=== PATIENT | male | born 1985 | race Caucasian/White ===

== ENCOUNTER 2020-06-13 13:17 | Emergency (ER) | payer OTHER, SELFPAY ==
--- NOTE | ~2020-06-13 | XR_ITS ---
EXAMINATION: XR FINGER, LEFT CLINICAL INFORMATION: Laceration, injury COMPARISON: None TECHNIQUE: AP view left hand and 2 views left thumb are obtained for 3 views. FINDINGS: There is a known laceration distal left thumb. An oblique fracture possibly comminuted involving the distal phalangeal tuft. There is no destructive process. No dislocation. The remainder of the bony structures are intact. XR/XR finger LT min 2V IMPRESSION: Laceration distal left thumb with fracture distal phalangeal tuft.
[2020-06-13 13:36] VITALS: BP 148/92; PULSE 83; RESP 18; TEMP 36.8; O2SAT 97; BMI 27.1
[2020-06-13] MEDS: Ibuprofen 800 MG TABLET PO (16:10)
[2020-06-13] MEDS: Lidocaine HCl 1 % MPF 5 ML VIAL 10 ML SUBCUT (16:11)
[2020-06-13] MEDS: Diphth,Pertus(ACell),Tet Adult 0.5 ML SYRINGE IM (16:35)
[2020-06-13] MEDS: Lidocaine 4 % Cream KIT 1 APPL TOPICAL (17:08)
--- NOTE | 2020-06-13 17:43 | ED_ITS ---
HPI - Wound/Laceration General Chief Complaint: Wound/Laceration Stated Complaint: lac - work related Time Seen by Provider: 06/13/20 15:45 Source: patient Mode of arrival: ambulatory Limitations: no limitations History of Present Illness HPI narrative: States fortunately script his finger across a sharp metal full at work causing partial avulsion of the nail and laceration to the nail bed. For his tetanus vaccination. Injury to the left thumb. This occurred today at work on 06/13/2020 Onset (ago): minute(s) Extremity Location: left: hand (Thumb) Place: work Patient tetanus UTD: No Context: accidental Associated symptoms: pain Treatments prior to arrival: bandage Related Data Previous Rx's Medication Instructions Recorded clindamycin HCl 150 mg PO BID 10 Days #20 cap 06/13/20 ibuprofen 800 mg PO Q8H PRN #30 tab 06/13/20 oxycodone 5 mg PO Q8H PRN 3 Days #10 tab 06/13/20 Allergies Allergy/AdvReac Type Severity Reaction Status Date / Time amoxicillin [AMOXICILLIN] Allergy Intermediate HIVES Verified 06/13/20 13:36 codeine [Codeine] Allergy Intermediate HIVES Verified 06/13/20 13:36 sulfamethoxazole Allergy Intermediate RASH Verified 06/13/20 13:36 [From Bactrim] trimethoprim [From Bactrim] Allergy Intermediate RASH Verified 06/13/20 13:36 Penicillins Allergy Mild UNKNOWN Verified 06/13/20 13:36 Review of Systems Review of Systems: Constitutional: No Weight loss, No Fever, No Chills, No Night Sweats, No Fatigue, No Malaise ENT/Mouth: No Hearing loss, No Ear Pain, No Nasal Congestion, No Sinus Pain, No Hoarseness, No sore throat, No Rhinorrhea, No Swallowing Difficulty Eyes: No Eye Pain, No Swelling, No Redness, No Foreign Body, No Discharge, No Vision Changes Cardiovascular: No Chest Pain, No SOB, No Dyspnea on Exertion, No Orthopnea, No Edema, No Palpitations Respiratory: No Cough, No Sputum, No Wheezing, No Smoke Exposure, No Dyspnea Gastrointestinal: No Nausea, No Vomiting, No Diarrhea, No Constipation, No abdominal Pain, No Hematochezia, No Melena Genitourinary: no irregular bleeding, No Dysuria, No Urinary Frequency, No Hematuria, No Urinary Incontinence, No Urgency, No Flank Pain, No Urinary Flow Changes, No Hesitancy Musculoskeletal: No joint pain, No Myalgias, No Joint Swelling Skin: No Skin Lesions, No rash Neuro: No Weakness, No Numbness, No Paresthesias, No Loss of Consciousness, No Dizziness, No Headache Psych: No Social Issues Heme/Lymph: No Bruising, No Bleeding,No Lymphadenopathy Endocrine: No Polyuria, No Polydipsia, No Temperature Intolerance Yes all other systems are reviewed and are negative [facility] Social History Social History Smoking Status: Current every day smoker Smoked in Last 30 Days: Yes Use of substances other than those prescribed or required for medical reasons: No Advance Directives: No Advance Directives Information Provided: No Physical Exam Vital Signs: Vital Signs: Last Vital Signs Temp 98.2 F 06/13/20 13:36 Pulse 83 06/13/20 13:36 Resp 18 06/13/20 13:36 BP 148/92 H 06/13/20 13:36 Pulse Ox 97 06/13/20 13:36 Body Mass Index 27.1 Reviewed Const: General: cooperative and healthy appearing; No acute distress or intoxicated appearing Nutritional Appearance: average body habitus Orientation/consciousness: patient oriented x3 HENMT: Head: Yes normal to inspection Ears: hearing grossly normal bilaterally Eyes: General: appearance normal, both eyes and all related structures Visual Tanner: normal visual tanner by confrontation Neck: Neck: Yes normal visual inspection, No positive Brudzinski's sign, No positive Kernig's sign and No tender Thyroid: Thyroid normal Chest: Chest palpation & inspection: normal inspection of the chest Resp: Effort & Inspection: normal respiratory effort Auscultation: clear to auscultation bilaterally Cardio: Jugular venous distension: no JVD Rhythm: regular rhythm Heart sounds: S1 normal heart sound present and S2 normal heart sound present GI: Inspection: Yes normal to inspection Palpation (GI): Soft to palpation Percussion: Yes normal to percussion Auscultation: normal bowel sounds : General: Yes no CVA tenderness Back/Spine/Pelvis: Back: no CVA tenderness Skin: General skin exam: no rashes or lesions noted Neuro: General: patient oriented x3 Extrem: General: Yes normal to inspection Left upper extremity: hand Details: other (Left thumb there appears to be almost fully avulsed nail just laying on top of the nail bed. There is a small laceration underneath. Otherwise skin tip intact.) Course Reevaluation(s) Reevaluation #1: No avulsion with laceration to the nail bed repaired with 2 absorbable sutures and the avulsed nail was removed completely. Fracture shows tuft fracture given empiric antibiotic case will be discussed with orthopedic hand surgery and close outpatient follow-up. Patient will be given a work note and educated on signs of infection and including increased risk for infection including osteomyelitis he understand this and he will change the dressing twice a day he has reformed dressing on top of the wound and cover with nonadhesive dressing and finger splint. He will call Dr. Bullard office for appointment tomorrow morning. Consultations Consultation #1: [place] text to Dr. Bullard Attempt to page no answer Will have patient call tomorrow if he is unable to get in he will call here to help him get in to see the hand surgeon. Procedures Laceration Laceration 1: Site: other (Left thumb) Side (If applicable): left Size (cm): 1 Description: linear Depth: simple, single layer Local Anesthetic: lidocaine 1% Amount of anesthesia used (mL): 5 Pre-repair: wound explored Skin layer closed with: other (Absorbable) Number of sutures: 2 Technique: simple, interrupted Technique: other (Psych cover with petroleum impregnated gauze, sterile nonadhesive dressing, finger splint.) MDM - Wound/Laceration Differential Diagnosis Differential diagnosis: Likely laceration and avulsion of skin; Unlikely abscess and abrasion Medical Records Attestation: I reviewed the patient's medical records. Lab Data Attestation: I reviewed the patient's lab results. Imaging Data Finger x-ray: Radiologist's impression: [address] [id number] ReportSigned Patient: Markell Duran DMR#: [id number]: [id number]:[id number]/Sex: 34 / MADM Date: 06/13/20Loc: EDAttending Dr: Ordering Physician: Jeffrey Perry NP Date of Service: 06/13/20 Procedure(s): XR finger LT min 2V Accession Number(s): [id number] cc: Jeffrey Perry NP~ EXAMINATION: XR FINGER, LEFT CLINICAL INFORMATION: Laceration, injury COMPARISON: None TECHNIQUE: AP view left hand and 2 views left thumb are obtained for 3 views. FINDINGS: There is a known laceration distal left thumb. An oblique fracture possibly comminuted involving the distal phalangeal tuft. There is no destructive process. No dislocation. The remainder of the bony structures are intact. XR/XR finger LT min 2V IMPRESSION: Laceration distal left thumb with fracture distal phalangeal tuft. Dictated By:KARIME FALLON MDSigned By:<Electronically signed by KARIME FALLON MD in OV>06/13/20 1647 DD/ 1545TD/TT: [facility] [employer] Advisors: FELICIANO Discharge Plan Discharge Clinical Impression: Closed fracture of tuft of distal phalanx of finger, Avulsion of nail, Lacerati on of finger nail bed Patient Disposition: Home, Self-Care Instructions: Finger Fracture (ED), Finger Laceration (ED), Nail Avulsion (ED) Additional Instructions: Leave the dressing on the finger May change topical dressing twice a day Leave the finger splint in place Take your antibiotics as prescribed Follow-up with the hand surgeon call tomorrow to the office to make an appoint ment for follow-up Return if any increasing pain, redness to the finger, swelling, discharge, fever or any other concerning symptoms otherwise follow-up closely with a hand surgeon in office Thank you Prescriptions: New clindamycin HCl 150 mg capsule 150 mg PO BID 10 Days Qty: 20 RF: 0 ibuprofen 800 mg tablet 800 mg PO Q8H PRN (Reason: pain) Qty: 30 RF: 0 oxycodone 5 mg tablet 5 mg PO Q8H PRN (Reason: pain) 3 Days Qty: 10 RF: 0 Referrals: Maryam Bullard MD [Physician] - 2 days Stand Alone Forms: Work/School Release Interventions: ED Discharge Assessment Last Done: 06/13/20 18:40 Discharge Date/Time: 06/13/20 18:28
== END 2020-06-13 18:28 | disposition home or self-care (01) ==
PROVIDERS: Emergency Provider Internal Medicine
DX: S61.112A Laceration without foreign body of left thumb with damage to nail, initial encounter (principal); W26.8XXA Contact with other sharp object(s), not elsewhere classified, initial encounter; Y93.89 Activity, other specified; Y92.59 Other trade areas as the place of occurrence of the external cause; Y99.0 Civilian activity done for income or pay; F17.200 Nicotine dependence, unspecified, uncomplicated
CPT/HCPCS: 12001; 29130; 73140; 90471; 90715; 99284

== ENCOUNTER → 2020-06-20 09:17 | Outpatient (BNVA) | payer OTHER, SELFPAY | PROVIDERS: Visit Provider Physician Assistant | DX: S61.019A Laceration without foreign body of unspecified thumb without damage to nail, initial encounter (principal); S62.639A Displaced fracture of distal phalanx of unspecified finger, initial encounter for closed fracture | CPT/HCPCS: 99202 ==